=== PATIENT | female | born 1965 | race Caucasian/White ===

== ENCOUNTER 2017-05-09 21:57 | Emergency (ER) | payer MEDICAID ==
[~2017-05-09] VITALS: Ht 175.3 cm; Wt 82.0 kg
[~2017-05-09 21:57] MED LIST: HYDR-882 PO; HYDR10TA11 PO; MECL-76 PO; ONDA4TAB10 PO; OXYC5TAB3 PO; [UNRECOGNIZED DRUG - OTHER]; [UNRECOGNIZED DRUG - OTHER] PO
[2017-05-09 22:49] LABS: HEMATOCRIT 30.8 % (34.6-47.8); HEMOGLOBIN 9.7 g/dL (11.7-16.4); WHITE BLOOD COUNT 7.4 x10^3/uL (3.4-10)
[2017-05-09] MEDS ORDERED: SODIUM CHLORIDE FLUSH 10ML SYR IVF ONE (23:00)
[2017-05-09] MEDS ORDERED: SODIUM CHLORIDE 0.9% 1,000ML IVBOLUS ONE (23:00)
[2017-05-09 23:02] LABS: ASPARTATE AMINO TRANSFERASE 13 U/L (15-37); BLOOD UREA NITROGEN 5 mg/dL (7-18)
[2017-05-09 23:26] VITALS: BP 148/84
== END 2017-05-10 00:21 | disposition home or self-care (01) ==
LOC: ED 05-10 00:15
DX: N93.8 Other specified abnormal uterine and vaginal bleeding (principal); K59.00 Constipation, unspecified; M79.1 Myalgia; D64.9 Anemia, unspecified; Z90.49 Acquired absence of other specified parts of digestive tract
CPT/HCPCS: 36415; 80053; 83735; 85025; 96360; 99284; J7030

== ENCOUNTER 2017-06-24 23:50 | Emergency (ER) | payer MEDICAID ==
[~2017-06-24] VITALS: Ht 175.3 cm; Wt 83.0 kg
[2017-06-24 23:59] VITALS: BP 152/94
== END 2017-06-25 01:09 | disposition home or self-care (01) ==
LOC: ED 23:59
DX: Z76.0 Encounter for issue of repeat prescription (principal); Z90.49 Acquired absence of other specified parts of digestive tract; Z88.6 Allergy status to analgesic agent; Z88.0 Allergy status to penicillin; Z91.018 Allergy to other foods; Z88.8 Allergy status to other drugs, medicaments and biological substances
CPT/HCPCS: 99283

== ENCOUNTER 2019-12-09 02:31 | Emergency (ER) | payer MEDICAID ==
[~2019-12-09] VITALS: Ht 177.8 cm; Wt 73.4 kg
[~2019-12-09 02:31] MED LIST changes: +HYDR-3059 PO; +HYDR-3653 PO; -HYDR-882 PO; -HYDR10TA11 PO
[2019-12-09 02:46] VITALS: BP 128/88
--- NOTE | 2019-12-09 03:44 | NUR ---
PT. AMBULATORY TO ROOM FROM LOBBY AT THIS TIME.
[2019-12-09] MEDS ORDERED: DIAZEPAM 5 MG TABLET ONE (03:54)
[2019-12-09] MEDS ORDERED: HYDROcodone/APAP 5/325 TABLET ONE (03:54)
[2019-12-09] MEDS ORDERED: ONDA4TAB7 PO (03:59)
[2019-12-09] MEDS ORDERED: CHLO25TA PO (03:59)
[2019-12-09] MEDS ORDERED: HYDROcodone/APAP 5/325 TABLET PO PRN (04:00)
[2019-12-09] MEDS ORDERED: DIAZEPAM 5 MG TABLET PO ONE (04:00)
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
[2019-12-09] MEDS ORDERED: CALCIUM CARBONATE 500 MG TAB.CHEW ONE (04:17)
--- NOTE | 2019-12-09 04:25 | NUR ---
Pt requested tums. MD updated and order received. Pt medicated.
[2019-12-09] MEDS ORDERED: CALCIUM CARBONATE 500 MG TAB.CHEW PO PRN (04:30)
--- NOTE | 2019-12-09 04:32 | NUR ---
Pt to imaging.
--- NOTE | 2019-12-09 05:10 | NUR ---
Pt returned from imaging.
--- NOTE | 2019-12-09 05:56 | NUR ---
Spoke to shlomo mixon for update on ETA of read. Desire reports it is locked in my radiologist and should be read next.
--- NOTE | 2019-12-09 06:15 | NUR ---
Pt ambulatory to restroom.
--- NOTE | 2019-12-09 06:34 | NUR ---
Pt d/c'd to self care. Pt alert, oriented and ambulatory at time of d/c. Pt educated on prescriptions, PTC meds, home care and follow-up. Pt VU. Pt ambulated out of ER.
== END 2019-12-09 06:36 | disposition home or self-care (01) ==
LOC: ED 06:25
DX: S16.1XXA Strain of muscle, fascia and tendon at neck level, initial encounter (principal); S39.012A Strain of muscle, fascia and tendon of lower back, initial encounter; S29.012A Strain of muscle and tendon of back wall of thorax, initial encounter; F17.200 Nicotine dependence, unspecified, uncomplicated; Z90.49 Acquired absence of other specified parts of digestive tract; V49.49XA Driver injured in collision with other motor vehicles in traffic accident, initial encounter; Y93.89 Activity, other specified; Y92.89 Other specified places as the place of occurrence of the external cause; Y99.8 Other external cause status
CPT/HCPCS: 72050; 72072; 72110; 99284

== ENCOUNTER 2020-01-27 22:53 | Emergency (ER) | payer MEDICAID, OTHER ==
[~2020-01-27] VITALS: Ht 175.3 cm; Wt 71.9 kg
[~2020-01-27 22:53] MED LIST changes: +CHLO25TA PO; +ONDA4TAB7 PO
[2020-01-27] MEDS ORDERED: MORPHINE SULFATE 4 MG/ML, 1ML ONE (23:15)
[2020-01-27] MEDS ORDERED: ONDANSETRON 2MG/ML, 2ML ONE (23:15)
[2020-01-27] MEDS: MORPHINE SULFATE 4 MG/ML, 1ML IVPush PRN (23:29)
[2020-01-27] MEDS ORDERED: ONDANSETRON 2MG/ML, 2ML IVPush ONE (23:30)
--- NOTE | 2020-01-27 23:36 | NUR ---
THIS IS A 54 YO FEMALE COMING IN FOR N/V X 2 DAYS. PT STATES THAT "THERE IS A LUMP COMING OUT OF MY VAGINA." PT DENIES ANY VAGINAL BLEEDING, C/O CRAMPING IN BILATERAL LOWER QUADRANTS. A&OX4, VSS, NAD AT THIS TIME. DENIES ANY RECENT TRAUMA "I HAVEN'T HAD SEX IN 4 YEARS, OR A PERIOD IN 2 YEARS". PATIENT STATES " I HAD 10 KIDS VAGINALLY". VAGINAL EXAM COMPLETE BY ERP. PATIENT MEDICATED PER EMAR.
--- NOTE | 2020-01-28 00:04 | NUR ---
PATIENT AMBULATORY WITH STEADY GAIT TO RESTROOM FOR UA
[2020-01-28 00:08] LABS: BASOPHILS # (AUTO) 0.02 x10^3/uL (0-0.1); BASOPHILS % (AUTO) 0 % (0-1); EOSINOPHILS # (AUTO) 0.02 x10^3/uL (0-0.4); EOSINOPHILS % (AUTO) 0 % (1-7); LYMPHOCYTES # (AUTO) 2.29 x10^3/uL (1-3.4); LYMPHOCYTES % (AUTO) 33 % (22-44); MD NO; MEAN CORPUSCULAR HEMOGLOBIN 30.3 pg (27.0-34.8); MEAN CORPUSCULAR HGB CONC 33.9 g/dL (32.4-35.8); MEAN CORPUSCULAR VOLUME 89.5 fL (80-100); MEAN PLATELET VOLUME 8.4 fL (7.4-10.4); MONOCYTES # (AUTO) 0.67 x10^3/uL (0.2-0.8); MONOCYTES % (AUTO) 10 % (2-9); NEUTROPHILS # (AUTO) 4.01 x10^3/uL (1.8-6.8); NEUTROPHILS % (AUTO) 57 % (42-75); PLATELET COUNT 297 x10^3/uL (130-400); RED BLOOD COUNT 5.03 x10^6/uL (3.82-5.3); RED CELL DISTRIBUTION WIDTH 13.1 % (9.6-15.2)
[2020-01-28 00:11] LABS: ALANINE AMINOTRANSFERASE 58 U/L (12-78); ALBUMIN 3.9 g/dL (3.4-5.0); ANION GAP 7 mmol/L (5-15); CHLORIDE 99 mmol/L (98-107)
[2020-01-28 00:14] LABS: ALKALINE PHOSPHATASE 62 U/L (45-117); BILIRUBIN,TOTAL 0.5 mg/dL (0.2-1.0); CREATININE 1.99 mg/dL (0.55-1.02); TOTAL PROTEIN 7.4 g/dL (6.4-8.2)
[2020-01-28] MEDS ORDERED: METOCLOPRAMIDE 5 MG/ML, 2ML IVPush ONE (00:30)
[2020-01-28] MEDS ORDERED: METOCLOPRAMIDE 5 MG/ML, 2ML ONE (00:34)
[2020-01-28 00:37] LABS: MICROSCOPIC AUTO
[2020-01-28 00:38] LABS: CULTURE INDICATED? YES
--- NOTE | 2020-01-28 00:46 | NUR ---
REPORT GIVEN TO FRANKIE RODRIGUEZ. JENNIFER TO ASSUME CARE OF PATIENT AT THIS TIME
--- NOTE | 2020-01-28 00:48 | NUR ---
REPORT RECEVIED FROM DANNY Membreno RN. PT RESTING ON [place] WITH FAMILY AT FOR SUPPORT. VSS. MONITORING IN PLACE, CALL LIGHT WITHIN REACH.
[2020-01-28] MEDS ORDERED: MORPHINE SULFATE 4 MG/ML, 1ML ONE (00:52)
[2020-01-28] MEDS: MORPHINE SULFATE 4 MG/ML, 1ML IVPush PRN (00:55)
[2020-01-28] MEDS ORDERED: MAALOX/HYOSCYAMINE/LIDOCAINE 45 ML BTL ONE (01:37)
--- NOTE | 2020-01-28 01:45 | NUR ---
[place] FAMILY AT FOR SUPPORT. MEDICATED PER MAR. CALL LIGHT WITHIN REACH, MONITORING IN PLACE, VSS. ROOM DIMMED FOR PT COMFORT.
[2020-01-28] MEDS ORDERED: HYDROcodone/APAP 5/325 TABLET PO ONE (02:00)
[2020-01-28] MEDS ORDERED: MAALOX/HYOSCYAMINE/LIDOCAINE 45 ML BTL PO ONE (02:00)
[2020-01-28] MEDS ORDERED: HYDROcodone/APAP 5/325 TABLET ONE (02:01)
[2020-01-28 02:04] VITALS: BP 111/67
== END 2020-01-28 02:36 | disposition home or self-care (01) ==
LOC: ED 01-28 01:01
DX: K29.00 Acute gastritis without bleeding (principal); N81.4 Uterovaginal prolapse, unspecified; N28.9 Disorder of kidney and ureter, unspecified; I10 Essential (primary) hypertension; F17.200 Nicotine dependence, unspecified, uncomplicated; Z90.49 Acquired absence of other specified parts of digestive tract
CPT/HCPCS: 36415; 74176; 80053; 81001; 85025; 87086; 96374; 96375; 96376; 99284; J2270; J2405

== ENCOUNTER 2020-02-08 20:53 | Emergency (ER) | payer MEDICAID | END 2020-02-08 21:04 | LOC: ED 20:55 | DX: I10 Essential (primary) hypertension (principal); Z53.21 Procedure and treatment not carried out due to patient leaving prior to being seen by health care provider ==

== ENCOUNTER 2021-02-07 02:32 | Emergency (ER) | payer MEDICAID ==
[~2021-02-07] VITALS: Ht 175.3 cm; Wt 74.9 kg
[~2021-02-07 02:32] MED LIST changes: -HYDR-3059 PO; +HYDR-3590 PO; -OXYC5TAB3 PO; +OXYC5TAB98 PO
[2021-02-07 02:36] VITALS: BP 113/66
== END 2021-02-07 05:00 | disposition home or self-care (01) ==
LOC: ED 03:47
DX: S83.91XA Sprain of unspecified site of right knee, initial encounter (principal); S70.12XA Contusion of left thigh, initial encounter; I10 Essential (primary) hypertension; Z90.49 Acquired absence of other specified parts of digestive tract; F17.210 Nicotine dependence, cigarettes, uncomplicated; W18.30XA Fall on same level, unspecified, initial encounter; Y93.89 Activity, other specified; Y92.89 Other specified places as the place of occurrence of the external cause; Y99.8 Other external cause status
CPT/HCPCS: 99284; 99406

== ENCOUNTER 2021-05-30 00:54 | Emergency (ER) | payer MEDICAID ==
[~2021-05-30] VITALS: Ht 175.3 cm; Wt 87.0 kg
--- NOTE | 2021-05-30 01:00 | NUR ---
EKG DONE IN TRIAGE
--- NOTE | 2021-05-30 01:01 | NUR ---
PT ASKED FOR WATER IN TRIAGE, EXPLAINED THAT PT CAN NOT HAVE WATER IF VOMITING IS PRESENT. PT STATED "I AM GOING TO IF I DON'T GET SOMETHING TO DRINK". PT INFORMED OF NPO STATUS FOR ALL N/V PTS THAT CHECK INTO ER.
[2021-05-30] MEDS ORDERED: ONDANSETRON 2MG/ML, 2ML ONE ×2 (01:16→03:12)
[2021-05-30] MEDS ORDERED: ONDANSETRON 2MG/ML, 2ML IVPush ONE ×2 (01:30→03:30)
[2021-05-30] MEDS ORDERED: SODIUM CHLORIDE 0.9% 1,000ML IVBOLUS ONE ×2 (01:30→03:30)
[2021-05-30 01:49] LABS: BASOPHILS % (AUTO) 0 % (0-1); EOSINOPHILS % (AUTO) 0 % (1-7); LYMPHOCYTES % (AUTO) 12 % (22-44); MEAN CORPUSCULAR HEMOGLOBIN 30.5 pg (27.0-34.8); MEAN CORPUSCULAR HGB CONC 34.2 g/dL (32.4-35.8); MEAN PLATELET VOLUME 8.4 fL (7.4-10.4); MONOCYTES % (AUTO) 7 % (2-9); NEUTROPHILS % (AUTO) 80 % (42-75); PLATELET COUNT 258 x10^3/uL (130-400); RED BLOOD COUNT 5.34 x10^6/uL (3.82-5.3); RED CELL DISTRIBUTION WIDTH 13.1 % (9.6-15.2)
[2021-05-30 01:59] LABS: ALANINE AMINOTRANSFERASE 194 U/L (12-78); ALBUMIN 3.4 g/dL (3.4-5.0); ANION GAP 7 mmol/L (5-15); CALCIUM 9.1 mg/dL (8.5-10.1); CHLORIDE 103 mmol/L (98-107); CREATININE 1.57 mg/dL (0.55-1.02)
[2021-05-30 02:02] LABS: ALKALINE PHOSPHATASE 129 U/L (45-117); BILIRUBIN,TOTAL 0.8 mg/dL (0.2-1.0); TOTAL PROTEIN 7.7 g/dL (6.4-8.2)
--- NOTE | 2021-05-30 03:22 | NUR ---
PT ATTEMPTED TO USE THE RESTROOM. UNABLE TO PRODUCE UA AT THIS TIME. WILL TRY AGAIN IN 10MINS
[2021-05-30 04:00] VITALS: BP 96/65
--- NOTE | 2021-05-30 04:03 | NUR ---
PT REPROTS IMRPOVEMENT OF SYMPTOMS
== END 2021-05-30 04:33 | disposition home or self-care (01) ==
LOC: ED 01:00
DX: A09 Infectious gastroenteritis and colitis, unspecified (principal); R11.2 Nausea with vomiting, unspecified; R50.9 Fever, unspecified; R00.0 Tachycardia, unspecified; I10 Essential (primary) hypertension; Z90.49 Acquired absence of other specified parts of digestive tract; F17.200 Nicotine dependence, unspecified, uncomplicated
CPT/HCPCS: 36415; 80053; 80320; 83690; 85025; 93005; 96361; 96374; 96376; 99284; J2405; J7030; 96375; G0480